=== PATIENT | male | born 1980 | race Two or more races ===

== ENCOUNTER 2016-09-17 04:45 | Emergency (ER) | payer OTHER ==
[~2016-09-17] VITALS: Ht 175.3 cm; Wt 77.8 kg
[2016-09-17 05:32] LABS: HEMATOCRIT 44.7 % (38.0-50.0); MCH 30.1 PG (29.0-34.0); MCHC 33.8 G/DL (30.0-36.0); MCV 89.2 FL (86-99); RBC DIS.WIDTH-SD 42.4 % (39-53); RED BLOOD COUNT 5.01 M/uL (4.00-5.50)
[2016-09-17 05:35] LABS: CHLORIDE 104 mEq/L (99-109); POTASSIUM 4.2 mEq/L (3.7-5.4); SODIUM 140 mEq/L (136-147)
[2016-09-17 05:37] LABS: GLUCOSE 115 mg/dL (70-99)
[2016-09-17 05:38] LABS: ANION GAP 12 MEQ/L (2-14)
[2016-09-17 05:39] LABS: TOTAL BILIRUBIN 0.4 mg/dL (0.0-1.0)
[2016-09-17 05:41] LABS: ALKALINE PHOSPHATASE 48 IU/L (3-129); GFR ESTIMATE (CALCULATED) > 59 mL/min/
[2016-09-17 05:42] LABS: UREA NITROGEN (BUN) 9 mg/dL (9-23)
[2016-09-17 05:44] LABS: LIPASE 14 U/L (1.0-51.0)
[2016-09-17 05:55] LABS: ADD MIUA? NO; BILIRUBIN NEGATIVE; BLOOD NEGATIVE; COLOR STRAW ((YELLOW)); GLUCOSE (STRIP) NEGATIVE; KETONES NEGATIVE; LEUKOCYTES NEGATIVE; NITRITE NEGATIVE; PROTEIN (STRIP) NEGATIVE; SPECIFIC GRAVITY 1.005 (1.000-1.030); UCUL ADDED? NO; UROBILINOGEN 0.2 MG/DL (0.2-1.0)
[2016-09-17 06:07] VITALS: BP 144/110
[2016-09-17 07:05] LABS: MEAN PLAT.VOLUME 10.4 uM^3 (9.0-12.4); PLATELET COUNT 216 K/uL (156-360)
== END 2016-09-17 06:09 | disposition home or self-care (01) ==
LOC: EME 04:45
PROVIDERS: Physician Assistant
DX: K63.89 Other specified diseases of intestine (principal); M54.9 Dorsalgia, unspecified
CPT/HCPCS: 72128; 74176; 80053; 81003; 83690; 85027; 99281; 99284